=== PATIENT | female | born 1945 | race Caucasian/White ===

== ENCOUNTER 2017-03-19 09:56 | Day surgery (SDC) | payer OTHER ==
[2017-03-19] MEDS ORDERED: MIDAZOLAM 1 MG/ML 2 ML INJ (11:17)
[2017-03-19] MEDS ORDERED: FENTAnyl 50 MCG/ML VIAL (11:17)
[2017-03-19] MEDS ORDERED: PROPOFOL 20 ML (11:17)
== END 2017-03-19 15:15 | disposition home or self-care (01) ==
LOC: GIL 09:56
DX: R19.4 Change in bowel habit (principal); K62.1 Rectal polyp; K21.9 Gastro-esophageal reflux disease without esophagitis; K29.70 Gastritis, unspecified, without bleeding; K57.90 Diverticulosis of intestine, part unspecified, without perforation or abscess without bleeding; K64.8 Other hemorrhoids; E11.9 Type 2 diabetes mellitus without complications; I10 Essential (primary) hypertension; E78.5 Hyperlipidemia, unspecified
CPT/HCPCS: 43239; 87081; 88305